=== PATIENT | male | born 1965 | race Caucasian/White ===

== ENCOUNTER → 2023-12-23 | Day surgery (SDC) | payer OTHER ==
[2023-12-17 13:47] LABS: BASOPHILS # (AUTO) 0.1 X10'3 (0-0.2); BASOPHILS % (AUTO) 0.9 % (0-1); EOSINOPHILS # (AUTO) 0.1 X10'3 (0-0.9); EOSINOPHILS % (AUTO) 1.8 % (0-6); LYMPHOCYTES # (AUTO) 2.6 X10'3 (1.1-4.8); LYMPHOCYTES % (AUTO) 40.7 % (21-51); MEAN CORPUSCULAR HEMOGLOBIN 31.5 PG (27.0-31.0); MEAN CORPUSCULAR HGB CONC 34.5 g/dL (33.0-36.5); MEAN CORPUSCULAR VOLUME 91.3 FL (78-98); MEAN PLATELET VOLUME 7.5 FL (7.4-10.4); MONOCYTES # (AUTO) 0.5 X10'3 (0-0.9); MONOCYTES % (AUTO) 8.6 % (2-12); PRE OP HEMATOCRIT 45.8 % (42.0-52.0); PRE OP HEMOGLOBIN 15.8 g/dL (14.0-17.9); PRE OP PLATELET COUNT 250 X10'3 (140-440); PRE OP WHITE BLOOD COUNT 6.3 10'3 (4.8-10.8); RED BLOOD COUNT 5.02 X10'6 (4.70-6.10); RED CELL DISTRIBUTION WIDTH 13.1 % (11.5-14.5)
[2023-12-17 14:01] LABS: ALBUMIN/GLOBULIN RATIO 1.2 (1.1-1.5); ALKALINE PHOSPHATASE 66 IU/L (46-116); BLOOD UREA NITROGEN 23 MG/DL (7-18); BUN/CREATININE RATIO 21.7 (10.0-20.0); CHLORIDE 109 MMOL/L (99-107); CREATININE 1.06 MG/DL (0.60-1.10); PRE OP ALT 39 U/L (30-65); PRE OP ANION GAP 11 (8-16); PRE OP AST 24 U/L (10-37); PRE OP BILIRUB, TOTAL 0.5 MG/DL (0.0-1.0); PRE OP GLUCOSE 113 MG/DL (70-104); PRE OP POTASSIUM 4.1 MMOL/L (3.4-5.1); PRE OP SODIUM 144 MMOL/L (135-145); TOTAL CARBON DIOXIDE 23.9 MMOL/L (24-32); TOTAL PROTEIN 7.4 G/DL (6.4-8.2); eGFR 72 ML/MIN
[~2023-12-23] VITALS: Ht 185.4 cm; Wt 99.7 kg
[~2023-12-23] MED LIST: OMEP40CA21 PO; TESTOSTERONE TOP
[2023-12-23] MEDS: famotidine 20mg tablet PO ONE (12:48)
[2023-12-23] MEDS: cefazolin 2gm/D5W 100mL 100 ML IV ONE (12:48)
[2023-12-23] MEDS: ringers solution, lacted 1,000 ML IV SCH (12:48)
[2023-12-23 15:13] VITALS: BP 142/75; PULSE 93; RESP 16; TEMP 100; O2SAT 97
[2023-12-23 15:15] VITALS: BP 142/75; PULSE 93; RESP 16; TEMP 100; O2SAT 97
[2023-12-23 15:17] VITALS: RESP 16; O2SAT 97
== END | disposition home or self-care (01) ==
LOC: PAS 11:52
PROVIDERS: ATTEND Surgery
DX: U07.1 COVID-19 (principal); K40.90 Unilateral inguinal hernia, without obstruction or gangrene, not specified as recurrent; K42.9 Umbilical hernia without obstruction or gangrene; Z53.8 Procedure and treatment not carried out for other reasons; R94.31 Abnormal electrocardiogram [ECG] [EKG]; K21.9 Gastro-esophageal reflux disease without esophagitis; F41.9 Anxiety disorder, unspecified; F32.A Depression, unspecified; Z87.891 Personal history of nicotine dependence; Z79.2 Long term (current) use of antibiotics; Z79.899 Other long term (current) drug therapy; Z96.643 Presence of artificial hip joint, bilateral; Z98.890 Other specified postprocedural states; Z82.49 Family history of ischemic heart disease and other diseases of the circulatory system
CPT/HCPCS: 36415; 80053; 82948; 85025; 87811; 93005; J0690; J7120

== ENCOUNTER 2024-01-18 12:05 | Day surgery (SDC) | payer OTHER ==
[~2024-01-18] VITALS: Ht 185.4 cm; Wt 97.4 kg
[2024-01-18] VITALS (11 sets, daily range): BP systolic 113–142; BP diastolic 78–89; PULSE 67–92; RESP 11–16; TEMP 98.2; O2SAT 94–100
[2024-01-18] MEDS: cefazolin 2gm/D5W 100mL 100 ML IV ONE (10:30)
[~2024-01-18 12:05] MED LIST changes: +ringers solution, lacted 1,000 ML IV SCH
[2024-01-18] MEDS: famotidine 20mg tablet PO ONE (12:39)
[2024-01-18 13:18] LABS: BASOPHILS % (AUTO) 0.8 % (0-1); EOSINOPHILS # (AUTO) 0.1 X10'3 (0-0.9); EOSINOPHILS % (AUTO) 1.5 % (0-6); LYMPHOCYTES # (AUTO) 2.8 X10'3 (1.1-4.8); LYMPHOCYTES % (AUTO) 47.3 % (21-51); MEAN CORPUSCULAR HEMOGLOBIN 31.1 PG (27.0-31.0); MEAN CORPUSCULAR HGB CONC 34.2 g/dL (33.0-36.5); MEAN CORPUSCULAR VOLUME 90.9 FL (78-98); MEAN PLATELET VOLUME 7.4 FL (7.4-10.4); MONOCYTES # (AUTO) 0.5 X10'3 (0-0.9); MONOCYTES % (AUTO) 8.7 % (2-12); NEUTROPHILS # (AUTO) 2.5 X10'3 (1.8-7.7); NEUTROPHILS % (AUTO) 41.7 % (42-75); PRE OP HEMATOCRIT 42.4 % (42.0-52.0); PRE OP HEMOGLOBIN 14.5 g/dL (14.0-17.9); PRE OP PLATELET COUNT 234 X10'3 (140-440); RED BLOOD COUNT 4.66 X10'6 (4.70-6.10); RED CELL DISTRIBUTION WIDTH 12.9 % (11.5-14.5)
[2024-01-18 13:37] LABS: ALBUMIN 3.7 G/DL (3.4-5.0); ALBUMIN/GLOBULIN RATIO 1.3 (1.1-1.5); ALKALINE PHOSPHATASE 60 IU/L (46-116); BLOOD UREA NITROGEN 20 MG/DL (7-18); BUN/CREATININE RATIO 19.2 (10.0-20.0); CALCIUM 8.7 MG/DL (8.5-10.1); CHLORIDE 108 MMOL/L (99-107); CREATININE 1.04 MG/DL (0.60-1.10); PRE OP ALT 33 U/L (30-65); PRE OP ANION GAP 9 (8-16); PRE OP AST 20 U/L (10-37); PRE OP GLUCOSE 90 MG/DL (70-104); PRE OP POTASSIUM 3.8 MMOL/L (3.4-5.1); PRE OP SODIUM 141 MMOL/L (135-145); TOTAL CARBON DIOXIDE 23.8 MMOL/L (24-32); TOTAL PROTEIN 6.6 G/DL (6.4-8.2); eCRCL 86 ML/MIN; eGFR 73 ML/MIN
[2024-01-18 13:44] LABS: PRE OP BILIRUB, TOTAL 0.6 MG/DL (0.0-1.0)
[2024-01-18] MEDS: diazepam 5mg tablet PO ONE (15:04)
[2024-01-18] MEDS ORDERED: ringers solution, lacted 1,000 ML IV SCH (16:20)
[2024-01-18] MEDS ORDERED: morphine 2 MG/ML inj. syringe IV PRN (16:20)
[2024-01-18] MEDS ORDERED: meperidine/PF 25mg/ml syringe IV PRN ×2 (16:20)
[2024-01-18] MEDS ORDERED: ondansetron/PF 4mg/2ml inj IV PRN (16:20)
[2024-01-18] MEDS ORDERED: morphine 4 MG/ML inj SYRINge IV PRN (16:20)
[2024-01-18] MEDS ORDERED: proCHLORperazine 10 MG/2 ml inj IV PRN (16:20)
[2024-01-18] MEDS ORDERED: BUPIVAcaine/PF 2.5mg/ml (0.25%) 10ml vial ONE ×2 (17:20→17:34)
[2024-01-18] MEDS ORDERED: sevoflurane 250ml liquid IH ONE (17:23)
[2024-01-18] MEDS ORDERED: fentaNYL/PF 50MCG/1 ML 2ML syringe ONE (17:32)
[2024-01-18] MEDS ORDERED: midazolam 1 mg/ML 2ml injection ONE (17:32)
[2024-01-18] MEDS ORDERED: LIDOcaine 1% 30ml preserv. free vial ONE (17:34)
[2024-01-18] MEDS ORDERED: ondansetron/PF 4mg/2ml inj ONE (18:51)
[2024-01-18] MEDS ORDERED: rocuronium 10mg/ml inj IV ONE (18:51)
[2024-01-18] MEDS ORDERED: propofol inj 20 ML IV ONE (18:52)
[2024-01-18] MEDS ORDERED: dexamethasone sod phosphate 4mg/ml inj. ONE (18:52)
[2024-01-18] MEDS: BUPIVAcaine/PF 2.5 mg/ml (0.25%) 30ml vial IJ ONE (18:57)
[2024-01-18] MEDS ORDERED: sugammadex 200mg/2ml injection IV ONE (18:59)
[2024-01-18] MEDS: meperidine/PF 25mg/ml syringe IV PRN (19:55)
[2024-01-18] MEDS: HYDROcodone/acetaminophen 5mg/325mg tablet PO PRN (20:50)
== END 2024-01-18 20:51 | disposition home or self-care (01) ==
LOC: PRE-OP 12:05
PROVIDERS: ATTEND Surgery
DX: K40.20 Bilateral inguinal hernia, without obstruction or gangrene, not specified as recurrent (principal); K42.9 Umbilical hernia without obstruction or gangrene; K21.9 Gastro-esophageal reflux disease without esophagitis; F41.9 Anxiety disorder, unspecified; F32.A Depression, unspecified; Z87.891 Personal history of nicotine dependence; Z79.2 Long term (current) use of antibiotics; Z79.899 Other long term (current) drug therapy; Z96.643 Presence of artificial hip joint, bilateral; Z98.890 Other specified postprocedural states; Z82.49 Family history of ischemic heart disease and other diseases of the circulatory system
CPT/HCPCS: 36415; 49591; 49650; 80053; 85025; C1781; J0131; J0690; J1100; J2175; J2250; J2405; J2704; J3010; J3490; J7030; J7120; S2900; Z7506; Z7508; Z7512; A4215; A4618